=== PATIENT | male | born 1990 | race African-American/Black ===

== ENCOUNTER 2021-03-24 16:07 | Inpatient (IN) | payer OTHER ==
[2021-03-24] VITALS (17 sets, daily range): BP systolic 102–155; BP diastolic 58–91
[~2021-03-24] VITALS: Ht 182.9 cm; Wt 85.3 kg
--- NOTE | ~2021-03-24 | HC ---
[facility] [place] [address] [place] [address] CONSULTATION Name: DARIA TATE Room #: 247-P ADM IN M.R.#: [id number] Admission: 03/24/21 Attend Phys: Ramesh Gonzalez MD Discharge: Date of : 86 Report #: [id number] THIS REPORT FOR: cc: FAM - No family physician/PCP FAM - No family physician/PCP Feliberto Verde MD ~ DATE OF SERVICE: 03/26/2021 HISTORY OF PRESENT ILLNESS: This is a 30-year-old male patient who was evaluated by me to prognosticate this patient for hypoxic encephalopathy. I talked to the nurse looking after this patient and I reviewed the record. He was admitted after he apparently have some intellectual disability. He basically collapsed. When the EMS came, he apparently was pulseless. This patient is on cooling protocol. He has cardiomegaly. Presently, he is being seen by multiple consultants. He is on propofol, but that according to nurses is just because of hypothermia protocol rather than any agitation or any movement. REVIEW OF SYSTEMS: A 14-point review of system was attempted, but that is all I can get in this patient. PAST MEDICAL HISTORY: Positive for intellectual disability and it looks like the patient has a hypertrophic cardiomyopathy which was diagnosed here. FAMILY HISTORY: Unavailable if it runs in his family or not. SOCIAL HISTORY: All I can get is that he lives with his mother. PHYSICAL EXAMINATION: GENERAL: He has no response to verbal or painful stimuli and he is completely unresponsive. HEENT: His pupils are small and nonreactive. He has no reflexes. He is intubated and he is moderate built individual, does not have any dysmorphic features of eyes, ears and face. Plantars are mute. VITAL SIGNS: Blood pressure is 123/64, respirations 16, pulse is 62, temperature is hypothermic at 95. LABORATORY DATA: White count is 7.5 and lactic acid is 8.9 on admission. He did have a CT scan of the head in Emergency Room and that does not show any acute abnormality. IMPRESSION: Hypoxic encephalopathy. RECOMMENDATION: We will try to do some basic workup in this patient starting with an EEG once the patient is warmed up and decide about further testing depending upon the outcome of the EEG. We will continue to follow up this [address] [address] CONSULTATION Name: DARIA TATE Room #: 247-P [facility] IN M.R.#: [id number] Admission: 03/24/21 Attend Phys: Ramesh Gonzalez MD Discharge: Date of : 86 Report #: [id number] patient along with you. Thank you very much for this referral. By: 1949 0214 Feliberto Verde MD /nt
--- NOTE | ~2021-03-24 | EEG ---
[facility] [place] [address] ELECTROENCEPHALOGRAM Name: DARIA TATE Room #: 247-P ADM IN M.R.#: [id number] Admission: 03/24/21 Attend Phys: Ramesh Gonzalez MD Discharge: Date of : 86 Report #: [id number] THIS REPORT FOR: //name// DATE OF SERVICE: 03/28/2021 This patient is being evaluated for altered mental status. EEG was done by placing the electrode by standard 10-20 system of electrode placement. Both referential and sequential montages were used for recording. Background activity in this patient's EEG does go up to about 9 Hz. Photic stimulation is unremarkable. No active epileptiform activity was noticed. IMPRESSION: This patient's EEG demonstrates a fairly well-formed background activity. Sometimes, that can occur because of alpha coma. Therefore, clinical correlation is recommended. By: 1418 1427 Feliberto Verde MD /nt
[~2021-03-24 16:07] MED LIST: BACTRIM DS TAB1 EACH PO; IBUPROFEN 600600 M1 PO; NORCO 5-325 TA1 EACH PO; SILVADENE20 GM PO
--- NOTE | 2021-03-24 16:16 | NUR ---
20 MG ETOMIDATE GIVEN IVP @1613 100MG SUCC GIVEN IVP @1614 7.5 ETT TUBE PLACED @ 1615, 24 @ THE LIP
--- NOTE | 2021-03-24 17:01 | NUR ---
pt back from ct. during ct transport pt vomited multiple times but was able to be suctioned in ct successfully.
[2021-03-24 17:08] LABS: CALCIUM 9.4 mg/dL (8.5-10.1); CREATININE 1.7 mg/dL (0.7-1.3); POTASSIUM 3.9 mmol/L (3.5-5.1)
[2021-03-24 17:10] LABS: APTT 28.7 Seconds (24.5-32.8); INR 1.06; PROTIME 11.5 Seconds (10.5-12.1)
[2021-03-24 17:19] LABS: ALBUMIN 3.7 g/dL (3.4-5.0); TOTAL BILIRUBIN 0.3 mg/dL (0.2-1.0)
[2021-03-24 17:24] LABS: ABSOLUTE NEUTROPHILS 4.5 thou/uL (1.4-8.2); BASOPHILS 0.8 % (0.0-2.0); EOSINOPHILS 7.1 % (0.0-3.0); HEMATOCRIT 43.8 % (42.0-52.0); HEMOGLOBIN 13.8 gm/dL (14.0-18.0); LYMPHOCYTES 43.5 % (24.0-44.0); MCH 26.3 pg (26.0-34.0); MCHC 31.5 g/dL (28.0-37.0); MCV 83.4 fL (80.0-100.0); MONOCYTES 7.5 % (1.0-8.0); PLATELET COUNT 299 thou/uL (150-400); POLYS 41.1 % (36.0-66.0); RBC 5.25 mil/uL (4.50-6.00); RDW 16.2 % (10.5-14.5)
[2021-03-24 17:49] LABS: BE(vivo) -2.2 mmol/L (-2 to +3); HCO3 23.7 mmol/L (22.0-26.0); PCO2 44.6 mmHg (35.0-45.0); PO2 149.2 mmHg (80.0-100.0); pH 7.343 (7.360-7.450); sO2 98.8 % (92.0-98.0)
[2021-03-24 18:00] LABS: URINE BILIRUBIN NEGATIVE (Negative); URINE BLOOD 3+ (Negative); URINE CLARITY SL CLOUDY; URINE COLOR YELLOW; URINE GLUCOSE-RANDOM* 2+ (Negative); URINE KETONES NEGATIVE (Negative); URINE LEUKOCYTES-REFLEX NEGATIVE (Negative); URINE NITRITE-REFLEX NEGATIVE (Negative); URINE PROTEIN (DIPSTICK) 3+ (Negative); URINE SPECIFIC GRAVITY >= 1.030 (1.005-1.035)
[2021-03-24 18:04] LABS: BACTERIA-REFLEX 1-9 Few /HPF (None Seen); CASTS None Seen /LPF (None Seen); CRYSTALS None Seen /LPF (None Seen); SQUAMOUS 0-3 Few /LPF (0-3); URINE RBC 3-10 Few /HPF (NONE SEEN); URINE WBC-REFLEX 0-5 Rare /HPF (0-5)
[2021-03-24 18:07] LABS: AMP/METHAMP Negative (Negative); BARBITURATES Negative (Negative); BENZODIAZEPINES Negative (Negative); COCAINE Negative (Negative); METHADONE Negative (Negative); OPIATES Negative (Negative); PCP Negative (Negative)
[2021-03-24 21:44] LABS: D-DIMER 2.96 ug/mLFEU (0.19-0.50)
[2021-03-25] VITALS (96 sets, daily range): BP systolic 87–135; BP diastolic 42–83
[2021-03-25 01:39] LABS: ALBUMIN 3.1 g/dL (3.4-5.0); CALCIUM 8.9 mg/dL (8.5-10.1); CREATININE 1.1 mg/dL (0.7-1.3); MAGNESIUM 3.3 mg/dL (1.8-2.4); PHOSPHORUS 2.5 mg/dL (2.5-4.9); POTASSIUM 3.7 mmol/L (3.5-5.1); TOTAL BILIRUBIN 0.3 mg/dL (0.2-1.0); TOTAL PROTEIN 6.9 g/dL (6.4-8.2)
[2021-03-25 01:42] LABS: ABSOLUTE NEUTROPHILS 4.6 thou/uL (1.4-8.2); BASOPHILS 0.5 % (0.0-2.0); EOSINOPHILS 3.2 % (0.0-3.0); HEMATOCRIT 39.4 % (42.0-52.0); HEMOGLOBIN 12.8 gm/dL (14.0-18.0); LYMPHOCYTES 14.9 % (24.0-44.0); MCH 26.1 pg (26.0-34.0); MCHC 32.5 g/dL (28.0-37.0); MCV 80.5 fL (80.0-100.0); MONOCYTES 10.1 % (1.0-8.0); PLATELET COUNT 216 thou/uL (150-400); POLYS 71.3 % (36.0-66.0); RBC 4.89 mil/uL (4.50-6.00); RDW 15.3 % (10.5-14.5); WBC 6.4 thou/uL (4.0-11.0)
[2021-03-25 01:46] LABS: APTT 36.9 Seconds (24.5-32.8); INR 1.1; PROTIME 11.9 Seconds (10.5-12.1)
--- NOTE | 2021-03-25 04:37 | NUR ---
This RN admitted patient to room 247 at 2000. Patient started on hypothermia protocol at 2011. Family to bedside at 2100 for about 15 minutes. Mother, Jelly Quinn is patients legal guardian. Sister Anita to bedside as well. R IJ placed, CVP monitoring. Patient reached targeted temperature of 33.0 at 0415 this morning.
--- NOTE | 2021-03-25 04:40 | NUR ---
This RN called [facility] per protocol at 0430. Referral number is [id number].
--- NOTE | 2021-03-25 04:40 | NUR ---
This RN spoke to Anita, sister at 0130. Discussed patient status and plan of care. Questions answered.
[2021-03-25 04:50] LABS: BE(vivo) -4.5 mmol/L (-2 to +3); HCO3 18.5 mmol/L (22.0-26.0); PCO2 28.8 mmHg (35.0-45.0); PO2 158.4 mmHg (80.0-100.0); pH 7.425 (7.360-7.450); sO2 99.1 % (92.0-98.0)
[2021-03-25 06:37] LABS: ABSOLUTE NEUTROPHILS 3.2 thou/uL (1.4-8.2); BASOPHILS 0.5 % (0.0-2.0); EOSINOPHILS 3.1 % (0.0-3.0); HEMATOCRIT 27.4 % (42.0-52.0); LYMPHOCYTES 13.9 % (24.0-44.0); MCHC 31.7 g/dL (28.0-37.0); MCV 82.1 fL (80.0-100.0); MONOCYTES 7.3 % (1.0-8.0); POLYS 75.2 % (36.0-66.0); RBC 3.34 mil/uL (4.50-6.00); RDW 15.9 % (10.5-14.5); WBC 4.3 thou/uL (4.0-11.0)
[2021-03-25 06:38] LABS: HEMOGLOBIN 8.7 gm/dL (14.0-18.0); PLATELET COUNT 130 thou/uL (150-400)
[2021-03-25 06:50] LABS: APTT 37.6 Seconds (24.5-32.8); INR 1.15; PROTIME 12.5 Seconds (10.5-12.1)
[2021-03-25 07:32] LABS: CREATININE 0.5 mg/dL (0.7-1.3); PHOSPHORUS 1.6 mg/dL (2.5-4.9); POTASSIUM 3.6 mmol/L (3.5-5.1)
[2021-03-25 07:43] LABS: CALCIUM 6.2 mg/dL (8.5-10.1)
--- NOTE | 2021-03-25 08:39 | EKG ---
[address] [address] ELECTROCARDIOGRAM REPORT Name: MAISHA TATELINCOLN Magdalene Room #: 247-P ADM IN M.R.#: [id number] Admission: 03/24/21 Attend Phys: Ramesh Gonzalez MD Discharge: Date of : 86 Report #: [id number] [facility] ED Test Date: 2021-03-24 Test Time: 16:27:00 Pat Name: DARIA TATE Department: Room: [facility] Gender: M Second Class Welder: [id number] : 1990 Requested By: June Carranza Order Number: [id number] : Bryce Valderrama Measurements Intervals [place] Rate: 90 P: 40 RI: 156 QRS: 49 QRSD: 89 T: 193 QT: 394 QTc: 482 Interpretive Statements Sinus rhythm Lateral leads are also involved Compared to ECG 10/04/2010 21:20:58 Left ventricular hypertrophy no longer present ST (T wave) deviation no longer present Possible ischemia no longer present Electronically Signed On 03-25-2021 8:39:26 OPTICIAN APPRENTICE DISPENSING by Bryce Valderrama [email or web address] <ELECTRONICALLY SIGNED> By: Bryce Valderrama MD, [facility] 03/25/21 0839 1627 1627 Bryce Valderrama MD, [facility] /EPI
--- NOTE | 2021-03-25 08:40 | EKG ---
[address] [address] ELECTROCARDIOGRAM REPORT Name: MAISHA TATELINCOLN Magdalene Room #: 247- ADM IN M.R.#: [id number] Admission: 03/24/21 Attend Phys: Ramesh Gonzalez MD Discharge: Date of : 86 Report #: [id number] [facility] ED Test Date: 2021-03-24 Test Time: 17:31:22 Pat Name: DARIA TATE Department: Room: [facility] Gender: M Tax Expert: adriano : 1990 Requested By: June Carranza Order Number: [id number] MD: Bryce Valderrama Measurements Intervals [place] Rate: 89 P: 51 AL: 159 QRS: 66 QRSD: 84 T: 240 QT: 392 QTc: 477 Interpretive Statements Sinus rhythm Probable left atrial enlargement Repol abnrm Compared to ECG 03/24/2021 16:27:00 Early repolarization now present Myocardial infarct finding no longer present Electronically Signed On 03-25-2021 8:39:51 VALVE REPAIRER by Bryce Valderrama [email or web address] <ELECTRONICALLY SIGNED> By: Bryce Valderrama MD, [facility] 03/25/21 0839 173 30 Bryce Valderrama MD, FAC /EPI
--- NOTE | 2021-03-25 08:40 | EKG ---
[address] [place] [address] ELECTROCARDIOGRAM REPORT Name: DARIA TATE Room #: 247- ADM IN M.R.#: [id number] Admission: 03/24/21 Attend Phys: Ramesh Gonzalez MD Discharge: Date of : 86 Report #: [id number] [facility] Test Date: 2021-03-24 Test Time: 21:24:07 Pat Name: DARIA TATE Department: Room: [facility] Gender: M Equipment Manager: WILMAR : 1990 Requested By: Nito Hartman Order Number: [id number] MD: Bryce Valderrama Measurements Intervals [place] Rate: 81 P: 42 HI: 154 QRS: 64 QRSD: 83 T: 235 QT: 415 QTc: 482 Interpretive Statements Sinus rhythm Consider right atrial enlargement Repol abnrm, global ischemia, diffuse leads Compared to ECG 03/24/2021 17:31:22 No significant changes Electronically Signed On 03-25-2021 8:40:20 HAND MOLD MAKER by Bryce Valderrama [email or web address] <ELECTRONICALLY SIGNED> By: Bryce Valderrama MD, [facility] 03/25/21 0840 23 23 Bryce Valderrama MD, [facility] /EPI
--- NOTE | 2021-03-25 10:56 | NUR ---
RN TOOK OVER CARE FOR THIS PATIENT AT 0900. RN ASSESSED PT. PT IS ON COOLING BLANKET CURRENTLY. PT TEMPERATURE IS AT 34.1. RN PLACED ICE PACKS UNDER ARMS AND IN GROIN AREA. COOLING BLANKET IS SET TO 32.0 C. PT IS ON PROPOFOL AND VERSED GTT FOR SEDATION. PT RECEIVED AN ECHO TODAY. RN CALLED [facility] AND HAD THEM LEAVE A MESSAGE FOR DR DE SOUZA THAT PT HGB CAME BACK AT 13.6. RN WILL CONTINUE TO MONITOR AND FOLLOW PLAN OF CARE.
--- NOTE | 2021-03-25 11:58 | NUR ---
Discussed during los with the attending physician and during unit rounds with pulmonary MD. Rewarming has started already. Might need go to the laborer brush clearing Will cont following as needed.
[2021-03-25 13:20] LABS: ABSOLUTE NEUTROPHILS 4.2 thou/uL (1.4-8.2); BASOPHILS 0.6 % (0.0-2.0); EOSINOPHILS 3.8 % (0.0-3.0); HEMATOCRIT 41.4 % (42.0-52.0); HEMOGLOBIN 13.4 gm/dL (14.0-18.0); LYMPHOCYTES 10.6 % (24.0-44.0); MCH 26.2 pg (26.0-34.0); MCHC 32.5 g/dL (28.0-37.0); MCV 80.5 fL (80.0-100.0); MONOCYTES 5.5 % (1.0-8.0); PLATELET COUNT 189 thou/uL (150-400); POLYS 79.5 % (36.0-66.0); RBC 5.14 mil/uL (4.50-6.00); RDW 15.7 % (10.5-14.5); WBC 5.3 thou/uL (4.0-11.0)
[2021-03-25 13:39] LABS: APTT 38.2 Seconds (24.5-32.8); INR 1.16; PROTIME 12.6 Seconds (10.5-12.1)
[2021-03-25 13:44] LABS: CREATININE 0.9 mg/dL (0.7-1.3); MAGNESIUM 2.4 mg/dL (1.8-2.4); PHOSPHORUS 1.9 mg/dL (2.6-4.7); POTASSIUM 3.3 mmol/L (3.5-5.1)
[2021-03-25 13:46] LABS: CALCIUM 8.6 mg/dL (8.5-10.1)
--- NOTE | 2021-03-25 13:57 | NUR ---
FAMILY AT BEDSIDE THIS MORNING. RN ANSWERED QUESTIONS AND EXPLAINED TO PT MOTHER ABOUT POSSIBILITY OF GOING TO [facility] TODAY AND HAD CONSENT SIGNED. DR DE SOUZA CAME TO UNIT. DR DE SOUZA SPOKE WITH PT MOTHER ABOUT PT GOING TO [facility].
--- NOTE | 2021-03-25 14:16 | 2DMMODE ---
[facility] [place] [address] 2 D/M-MODE ECHOCARDIOGRAM Name: DARIA TATE Room #: 247-P ADM IN M.R.#: [id number] Admission: 03/24/21 Attend Phys: Ramesh Gonzalez MD Discharge: Date of : 86 Report #: [id number] THIS REPORT FOR: cc: SUJATHA - No family physician/PCP SUJATHA - No family physician/PCP Kiko Beaulieu MD [facility] ~ APPROVED REPORT Study performed: 03/25/2021 10:09:46 EXAM: Comprehensive 2D, Doppler, and color-flow Echocardiogram Patient Location: ICU Room #: [facility] Status: routine BSA: 2.14 HR: 64 bpm BP: 125/83 mmHg Rhythm: NSR Other Information Study Quality: Good Indications Abnormal ECG Cardiac arrest 2D Dimensions RVDd: 31.01 mm IVSd: 24.24 (7-11mm) LVOT Diam: 19.25 (18-24mm) LVDd: 35.15 mm PWd: 12.79 (7-11mm) Ascending Ao: 23.02 (22-36mm) LVDs: 26.29 (25-40mm) Left Atrium: 29.74 (27-40mm) Aortic Root: 24.84 mm IVC: 12.00 mm Volumes Left Atrial Volume (Systole) Single Plane 4CH: 57.99 mL Single Plane 2CH: 35.02 mL LA ESV Index: 26.00 mL/m2 Aortic Valve AoV Peak Bandar.: 1.38 m/s AO Peak Gr.: 7.64 mmHg LVOT Max P.51 mmHg LVOT Max V: 1.28 m/s [facility] [address] [address] 2 D/M-MODE ECHOCARDIOGRAM Name: MAISHA TATELINCOLN Magdalene Room #: 247-P [facility] IN [facility]#: [id number] Admission: 03/24/21 Attend Phys: Ramesh Gonzalez MD Discharge: Date of : 86 Report #: [id number] MYRTLE Vmax: 2.69 cm2 Mitral Valve E/A Ratio: 0.7 MV Decel. Time: 314.60 ms MV E Max Bandar.: 0.37 m/s MV A Bandar.: 0.51 m/s MV PHT: 91.23 ms IVRT: 207.61 ms Pulmonary Valve PV Peak Bandar.: 0.98 m/s PV Peak Gr.: 3.86 mmHg Pulmonary Vein P Vein S: 0.19 m/s P Vein A: 0.14 m/s P Vein D: 0.19 m/s P Vein A Dur.: 46.1 msec P Vein S/D Ratio: 1.00 Left Ventricle The left ventricle is normal size. There is normal LV segmental wall motion. Concentric left ventricular hypertrophy with severe septal hypertrophy consistent with hypertrophic cardiomyopathy The left ventricular systolic function is normal. The left ventricular ejection fraction is within the normal range. LVEF is 65-70%. Mild diastolic dysfunction Right Ventricle The right ventricle is normal size. The right ventricular systolic function is normal. Atria The left atrium size is normal. The right atrium size is normal. Aortic Valve The aortic valve is normal in structure. Mild aortic regurgitation. There is no aortic valvular stenosis. Mitral Valve The mitral valve is normal in structure. There is no mitral valve regurgitation noted. No evidence of mitral valve stenosis. Tricuspid Valve The tricuspid valve is normal in structure. There is no tricuspid valve regurgitation noted. [facility] [place] [address] 2 D/M-MODE ECHOCARDIOGRAM Name: DARIA TATE Room #: 247-P ADM IN M.R.#: [id number] Admission: 03/24/21 Attend Phys: Ramesh Gonzalez MD Discharge: Date of : 86 Report #: [id number] Pulmonic Valve The pulmonary valve is normal in structure. There is no pulmonic valvular regurgitation. Great Vessels The aortic root is normal in size. IVC is normal in size and collapses >50% with inspiration. Pericardium Moderate pericardial effusion. Critical Notification Critical Value: Yes Physician Notified <Conclusion> The left ventricular systolic function is normal. Concentric left ventricular hypertrophy with severe septal hypertrophy consistent with hypertrophic cardiomyopathy LVEF is 65-70%. The aortic valve is normal in structure. Mild aortic regurgitation, no stenosis The mitral valve is normal in structure. No mitral valve regurgitation Pulmonary artery pressure could not be reliably ascertained Moderate pericardial effusion. <ELECTRONICALLY SIGNED> By: Kiko Beaulieu MD, FACC 03/25/21 141 141 141 Kiko Beaulieu MD, FACC /INF
--- NOTE | 2021-03-25 15:44 | NUR ---
PT ARRVIED BACK TO ICU FROM VETERINARY NURSE AT 1516. PT TEMP WAS 31.7. RN PUT WARM BLANEKTS ON PT AND BACK ON THE COOLING/HEATING BLANKET TO GET PATIENT BACK TO TARGET TEMP OF [address] JURADO, THE 24 HOURS FOR MAINTAINING TARGET TEMP RESTARTS AT 1516 - WHEN PT CAME BACK TO UNIT. RN WILL CONTINUE TO MONITOR PT CLOSELY. FAMILY WAS NOTIFIED PT IS BACK IN HIS ROOM.
--- NOTE | 2021-03-25 15:49 | CATHLAB ---
[facility] [place] [address] INVASIVE PROCEDURE REPORT Name: DARIA TATE Room #: 247-P ADM IN M.R.#: [id number] Admission: 03/24/21 Attend Phys: Ramesh Gonzalez MD Discharge: Date of : 86 Report #: [id number] THIS REPORT FOR: cc: FAM - No family physician/PCP FAM - No family physician/PCP Jung Fernandes MD ~ APPROVED REPORT Study performed: 03/25/2021 14:13:35 Patient Details Patient Status: In-Patient Room #: The patient is a 30 year-old male Event Personnel Jung Fernandes Supervisor Detasseling Crew, Bebe Turner RTR Monitor, Nita Joiner RTR Scrub, Julita Del Rio RN riverine assault craft crewman Performed Art Access - R femoral artery* Left Heart Cath w/or w/o Coronaries [id number] [facility] Hemostasis with Manual pressure Indication Abnormal ECG, Cardiomyopathy, The patient presented with out of hospital arrest, witnessed by family members. EMS found V. fib requiring cardioversion x2, with ROSC. Found to have abnormal ECG and elevated troponin level. Procedure Narrative The Right Groin^ was infiltrated with 1% Lidocaine subcutaneous anesthesia. A PINNACLE 4FR Sheath #[id number] sheath was inserted into the RFA^. Coronary angiography was performed using coronary diagnostic catheters. The right coronary system was accessed and visualized with a JR4 catheter. The left coronary system was accessed and visualized with a JL4 catheter. The left ventricle was accessed and visualized with a ANGLED PIGTAIL catheter. Left ventriculogram was performed in 30 degree projection. Hemostasis was obtained with manual pressure following sheath removal without any complications. The patient tolerated the procedure well and there were no complications associated with the procedure. There was no hematoma. Intraoperative Conscious Sedation Sedation start time: 14:27 Case end Time: 14:51 [facility] [place] [address] INVASIVE PROCEDURE REPORT Name: DARIA TATE Room #: 247-P [facility] IN ..#: [id number] Admission: 03/24/21 Attend Phys: Ramesh Gonzalez MD Discharge: Date of : 86 Report #: [id number] No additional sedation was given during the procedure. Fluoro Time: 2.70 minutes Dose: DAP 6936.90 cGycm2 973 mGy Contrast Type and Amount: Omnipaque 93 ml Coronary Angiography The patient's coronary anatomy is right dominant. Diagnostic Cath Left Main The left main artery is a large-caliber vessel, patent with no flow-limiting lesions. LAD The LAD is a moderate-sized caliber vessel, traverses the anterior wall and wraps around the apex. This vessel is patent with no flow-limiting lesions. Diagonal 1 There is a small caliber vessel, with no flow-limiting lesions. Diagonal 2 There is a small caliber vessel, with no flow-limiting lesions. Circumflex Supplies 2 small OM vessels. Right Coronary The RCA is a moderate-sized caliber vessel, patent with no flow-limiting lesions. R PDA There appears to be compression during systole in the proximal PDA. RPLV This is a small to moderate-sized caliber vessel, patent with no flow-limiting lesions. Ramus This is a moderate-sized caliber vessel, divides into 2 branches. This vessel is patent with no flow-limiting lesions. Left Ventriculography The left ventricle is normal in size with Hyperdynamic contractility. The left ventricular ejection fraction is estimated to be 65-70%. Hemodynamics The aortic pressure is 101/68 mmHg with a mean of 84 mmHg. The left ventricular pressure is 112/6 mmHg with a mean of mmHg. The left ventricular end diastolic pressure is 16 mmHg. Conclusion 1. There are angiographically normal coronary arteries. 2. This is a right dominant system. 3. There is a ramus artery present, with no flow-limiting lesions. 4. The LV systolic function is hyperdynamic. [facility] [address] [place] [address] INVASIVE PROCEDURE REPORT Name: TATEDARIA Room #: 247-P [facility] IN M.R.#: [id number] Admission: 03/24/21 Attend Phys: Ramesh Gonzalez MD Discharge: Date of : 86 Report #: [id number] 5. There appears to be systolic compression of the proximal PDA segment, possible myocardial bridge. <ELECTRONICALLY SIGNED> By: Jung Fernandes MD 03/25/21 1548 1548 1548 Jung Fernandes MD /INF
[2021-03-25 15:53] LABS: CALCIUM 8.8 mg/dL (8.5-10.1); CREATININE 0.9 mg/dL (0.7-1.3); MAGNESIUM 2.7 mg/dL (1.8-2.4); POTASSIUM 4.2 mmol/L (3.5-5.1)
[2021-03-25 16:21] LABS: HEMATOCRIT 41.6 % (42.0-52.0); HEMOGLOBIN 13.2 gm/dL (14.0-18.0); MCH 25.8 pg (26.0-34.0); MCHC 31.7 g/dL (28.0-37.0); MCV 81.4 fL (80.0-100.0); RBC 5.11 mil/uL (4.50-6.00); RDW 15.8 % (10.5-14.5); WBC 4.1 thou/uL (4.0-11.0)
--- NOTE | 2021-03-25 17:25 | NUR ---
FAMILY PRESENT AT BEDSIDE. FAMILY IS WANTING DR TO CALL THEM WITH AN UPDATE. RN CALLED [facility] AND LEFT A MESSAGE WITH THE LOAN CONSULTANT TO ASK DR NEAL TO CALL THE FAMILY OF THE PT TO UPDATE THEM. WILL CONTINUE TO MONITOR AND FOLLOW PLAN OF CARE
[2021-03-25 18:33] LABS: ABSOLUTE NEUTROPHILS 4.4 thou/uL (1.4-8.2); BASOPHILS 0.9 % (0.0-2.0); EOSINOPHILS 5.2 % (0.0-3.0); HEMATOCRIT 41.8 % (42.0-52.0); LYMPHOCYTES 16.3 % (24.0-44.0); MCH 26.7 pg (26.0-34.0); MCHC 33.4 g/dL (28.0-37.0); MCV 79.9 fL (80.0-100.0); MONOCYTES 6.8 % (1.0-8.0); PLATELET COUNT 211 thou/uL (150-400); POLYS 70.8 % (36.0-66.0); RBC 5.23 mil/uL (4.50-6.00); RDW 15.8 % (10.5-14.5); WBC 6.2 thou/uL (4.0-11.0)
[2021-03-25 18:45] LABS: CALCIUM 8.8 mg/dL (8.5-10.1); MAGNESIUM 2.5 mg/dL (1.8-2.4); PHOSPHORUS 2.4 mg/dL (2.6-4.7); POTASSIUM 4.2 mmol/L (3.5-5.1)
[2021-03-25 18:49] LABS: APTT 38.3 Seconds (24.5-32.8); INR 1.2
[2021-03-26] VITALS (93 sets, daily range): BP systolic 85–140; BP diastolic 35–82
[2021-03-26 03:46] LABS: HEMATOCRIT 44.9 % (42.0-52.0); HEMOGLOBIN 14.4 gm/dL (14.0-18.0); MCH 26.4 pg (26.0-34.0); MCHC 32.2 g/dL (28.0-37.0); MCV 82.1 fL (80.0-100.0); RBC 5.47 mil/uL (4.50-6.00); RDW 15.9 % (10.5-14.5); WBC 7.5 thou/uL (4.0-11.0)
[2021-03-26 04:03] LABS: CALCIUM 8.9 mg/dL (8.5-10.1); CREATININE 0.8 mg/dL (0.7-1.3); POTASSIUM 4.4 mmol/L (3.5-5.1)
--- NOTE | 2021-03-26 15:18 | NUR ---
Chart review. vent 30%, peep 5. nutritional support. no anticipated discharge over the weekend. Will cont following as needed.
--- NOTE | 2021-03-26 19:59 | NUR ---
DR ROSALES AT BEDSIDE AT 1937 AND DISCUSSED WITH THIS RN NEURO PLAN. PLAN FOR REPEAT CT HEAD ON 03/29.
[2021-03-27] VITALS (69 sets, daily range): BP systolic 105–158; BP diastolic 51–90
[2021-03-27 03:47] LABS: CALCIUM 8.9 mg/dL (8.5-10.1); CREATININE 1.1 mg/dL (0.7-1.3); POTASSIUM 4.4 mmol/L (3.5-5.1)
[2021-03-27 04:01] LABS: HEMOGLOBIN 12.9 gm/dL (14.0-18.0); MCH 26.4 pg (26.0-34.0); MCHC 32.1 g/dL (28.0-37.0); MCV 82.1 fL (80.0-100.0); RBC 4.87 mil/uL (4.50-6.00); RDW 16.5 % (10.5-14.5); WBC 6.1 thou/uL (4.0-11.0)
[2021-03-27 10:52] LABS: CHOLESTEROL 147 mg/dL (<200); HDL CHOLESTEROL 30 mg/dL (>40); LDL CHOLESTEROL 89 mg/dL (<100); TC:HDL 4.9 Ratio (Not establshd); TRIGLYCERIDE 143 mg/dL (<150); VLDL 29 mg/dL (<40)
--- NOTE | 2021-03-27 20:16 | NUR ---
COOLING BLANKET REINITIATED AT START OF SHIFT R/T TEMP RISING. TITRATED SEDATION DOWN TO ATTEMPT MORE COMPLETE NEURO ASSESSMENT. AT BEST, PT LIGHTLY SQUEEZES HANDS ON COMMAND AND MOVES FEET, ATTEMPTS TO OPEN EYES AND GRIMACES WITH ORAL CARE AND INLINE SUCTION STIMULATION. DOPAMINE TITRATED DOWN TO EFFECT. WARM BLANKETS APPLIED AT EOS R/T TEMP DECREASING, PLAN TO KEEP 37C FOR 48HRS TOTAL. TF STARTED, PT TOLERATING. FAMILY UPDATED THROUGHOUT DAY.
[2021-03-28] VITALS (63 sets, daily range): BP systolic 106–162; BP diastolic 39–93
--- NOTE | 2021-03-28 06:00 | NUR ---
REMAINS INTUBATED AND SEDATED. PT WILL UTILIZATION ENGINEER WEAKLY TO COMMAND + COUGH AND GAG 950 CC UO THIS SHIFT. LUNGS COARSE RHONCHI BILAT. HYPOTHERMIA PROTOCAL COMPLETE. WILL CONT TO MONITOR
[2021-03-28 06:32] LABS: EOSINOPHILS 6.8 % (0.0-3.0); HEMATOCRIT 39.1 % (42.0-52.0); HEMOGLOBIN 12.2 gm/dL (14.0-18.0); LYMPHOCYTES 17.6 % (24.0-44.0); MCH 25.7 pg (26.0-34.0); MCHC 31.3 g/dL (28.0-37.0); MCV 82.1 fL (80.0-100.0); MONOCYTES 10.4 % (1.0-8.0); PLATELET COUNT 199 thou/uL (150-400); POLYS 64.2 % (36.0-66.0); RBC 4.76 mil/uL (4.50-6.00); RDW 16.7 % (10.5-14.5); WBC 6.2 thou/uL (4.0-11.0)
[2021-03-28 06:45] LABS: ALBUMIN 2.6 g/dL (3.4-5.0); CALCIUM 8.6 mg/dL (8.5-10.1); MAGNESIUM 1.7 mg/dL (1.8-2.4); PHOSPHORUS 3.5 mg/dL (2.6-4.7); POTASSIUM 3.6 mmol/L (3.5-5.1); TOTAL BILIRUBIN 0.2 mg/dL (0.2-1.0); TOTAL PROTEIN 6.3 g/dL (6.4-8.2)
[2021-03-28 07:07] LABS: GLYCOHEMOGLOBIN (HGB A1C) 5.6 % (4.8-5.6)
[2021-03-28 12:41] LABS: BE(vivo) 0.5 mmol/L (-2 to +3); HCO3 23.8 mmol/L (22.0-26.0); PCO2 34.2 mmHg (35.0-45.0); PO2 115.9 mmHg (80.0-100.0); pH 7.461 (7.360-7.450); sO2 98.5 % (92.0-98.0)
--- NOTE | 2021-03-28 12:57 | NUR ---
PATIENT TRIAL ON CPAP TODAY- 08/08 30% HIS RSBI AT CLOSE OF TRIAL WAS 31 NIF -35. HIS ABG WAS 7.46/34.2/115.9/23.8 98%. RELAYED INFORMATION TO DR LEES AND HE DECIDED TO WAIT TO EXTUBATE WHEN PATIENT MENTATION HAS CLEARED. ALL SEDATION IS OFF AT THE MOMENT AND PRECEDEX IS BEING ADDED. EXTUBATION EXPECTED TOMORROW IF NO CHANGE IN STATUS OCCURS.
[2021-03-29] VITALS (45 sets, daily range): BP systolic 116–157; BP diastolic 62–98
[2021-03-29 04:43] LABS: ABSOLUTE NEUTROPHILS 5.3 thou/uL (1.4-8.2); BASOPHILS 0.5 % (0.0-2.0); EOSINOPHILS 4.2 % (0.0-3.0); HEMATOCRIT 38.4 % (42.0-52.0); HEMOGLOBIN 12.6 gm/dL (14.0-18.0); LYMPHOCYTES 14.7 % (24.0-44.0); MCH 26.1 pg (26.0-34.0); MCHC 32.8 g/dL (28.0-37.0); MCV 79.8 fL (80.0-100.0); PLATELET COUNT 208 thou/uL (150-400); POLYS 67.6 % (36.0-66.0); RBC 4.81 mil/uL (4.50-6.00); RDW 16.1 % (10.5-14.5); WBC 7.8 thou/uL (4.0-11.0)
--- NOTE | 2021-03-29 06:00 | NUR ---
REMAINS INTUBATED. MOVING PURPOSEFULLY ATTEMPTED TO SIT UP IN BED AND PULL AT TUBES. SINUS RHYTHM. VSS TEMP 97.3 THIS HOUR. WILL ATTEMPT CPAP THIS AM. AND HPOEFULLY EXTUBATE. 2 LITERS UO THIS SHIFT. GREATLY PROGRESSIBNG TOWARD GOALS. BATHED.
[2021-03-29 06:16] LABS: CALCIUM 9.3 mg/dL (8.5-10.1); CREATININE 1.1 mg/dL (0.7-1.3); MAGNESIUM 2.1 mg/dL (1.8-2.4); PHOSPHORUS 3.7 mg/dL (2.6-4.7); POTASSIUM 4.4 mmol/L (3.5-5.1)
[2021-03-29 09:38] LABS: BE(vivo) 2.4 mmol/L (-2 to +3); HCO3 26.4 mmol/L (22.0-26.0); PCO2 38.7 mmHg (35.0-45.0); PO2 111.5 mmHg (80.0-100.0); pH 7.452 (7.360-7.450); sO2 98.3 % (92.0-98.0)
--- NOTE | 2021-03-29 22:26 | NUR ---
pT'S MOTHER AND SISTER UPDATED ON PATIENT'S STATUS. PT REQUESTED TO NOT HAVE A BATH PERFORMED TONIGHT BUT DURING THE DAY TOMORROW WHEN HIS MOTHER IS HERE TO HELP HIM.
[2021-03-30] VITALS (22 sets, daily range): BP systolic 125–153; BP diastolic 63–88
[2021-03-30 11:36] LABS: CALCIUM 8.7 mg/dL (8.5-10.1); POTASSIUM 3.3 mmol/L (3.5-5.1)
[2021-03-30 11:43] LABS: INR 1.05; PROTIME 11.4 Seconds (10.5-12.1)
--- NOTE | 2021-03-30 14:20 | NUR ---
He self extubated yesterday. He is up in the recliner chair on room air. His mom is here at bedside. Will need ICD. Cardiac following. Speech eval for diet. Will cont following as needed.
--- NOTE | 2021-03-30 17:15 | NUR ---
PT PROGRESSING TOWARD GOALS. PT WORKED WITH SPEECH THERAPY, PT, AND OT TODAY. ST CLEARED PATIENT TO EAT WITH A MECHANICAL SOFT DIET. PT TOLERATED A FEW BITES AT LUNCH. OT GOT PATIENT UP TO CHAIR AND PT TOOK A FEW STEPS WITH PATIENT. PATIENT GOT UP TO BEDSIDE COMMODE AND HAD BM X3 THIS SHIFT. PT'S MOTHER GAVE HIM A BATH AND HELPED HIM BRUSH HIS TEETH. MOTHER WAS @ BEDSIDE ALL DAY AND HELD UP HER PHONE WHILE PT FACETIMED HIS FRIENDS/FAMILY. SATS >96% ON RA, BP STABLE, AND HR IN THE 80S. PT REMAINS AFEBRILE. RECTAL TEMP PROBE FELL OUT DURING FIRST BM AND THIS RN DID NOT REPLACE IT. CVP WAS DC'D PRIOR TO TRANSFER TO CCU ROOM 218. PT WAS TRANSPORTED VIA WHEELCHAIR BY PITCH FILLER ARSENIO AND PT'S MOTHER AROUND 1615. WILL CONTINUE TO FOLLOW POC.
--- NOTE | 2021-03-30 17:59 | NUR ---
Pt arrived to unit at 1615, transferred from ICU. Pt is A&0x4, VS stable and afebrile. No complaints of pain. Pt's voice is hoarse. Pt is resting in bed. No current concerns. Continue to monitor.
[2021-03-31 03:50] VITALS: BP 157/86
[2021-03-31 05:32] LABS: HEMATOCRIT 37.1 % (42.0-52.0); HEMOGLOBIN 12.1 gm/dL (14.0-18.0); MCH 25.8 pg (26.0-34.0); MCHC 32.7 g/dL (28.0-37.0); MCV 78.9 fL (80.0-100.0); RBC 4.71 mil/uL (4.50-6.00); RDW 15.4 % (10.5-14.5); WBC 5.9 thou/uL (4.0-11.0)
[2021-03-31 05:44] LABS: CALCIUM 8.8 mg/dL (8.5-10.1); CREATININE 1.1 mg/dL (0.7-1.3); POTASSIUM 3.4 mmol/L (3.5-5.1)
--- NOTE | 2021-03-31 06:27 | NUR ---
SLEEPING AT PRESENT TIME. UP TO COMODE X3, HAD ONE SMALL STOOL AND PASSED GAS THE OTHER 2 TIMES. NEEDS FREQUENT REASSURANCE. DENIES COMPLAINTS OF PAIN OR SHORTNESS OF AIR. TALKS ABOUT MUSIC FREQUENTLY. CONTINUE TO ASSES.
[2021-03-31 09:24] VITALS: BP 161/91
[2021-03-31 12:10] VITALS: BP 137/72
[2021-03-31 16:12] VITALS: BP 140/72
--- NOTE | 2021-03-31 18:02 | NUR ---
ASSESSMENT S CHARTED - MEDS PER MAR - LARRY SMALL AMOUNTS OF DIET AND FLUIDS. NO CO'S OF PAIN OR NAUSEA. AMBULATED IN THE HALLS WITH PHY THERAPY - SHOWERED WITH OCC THERAPY. COTTRELL CATH D/C AT APPROX 1200 PT HAS NOT VOIDED SINCE REMOVAL - WILL CONTINUE TO MONITOR. PT TO HAVE AICD PLACED TOMORROW - PERMIT SIGNED. MOTHER AT THE BEDSIDE FOR MOST OF THE DAY. NO CO'S AT THE PRESENT TIME.
[2021-03-31 19:39] VITALS: BP 127/70
[2021-04-01 03:48] VITALS: BP 120/56
--- NOTE | 2021-04-01 04:31 | NUR ---
Assumed pt care at 1900. Pt is alert and oriented. No sign of distress noted in pt. Pt is ambulatory. Vital signs stable. Assessment completed and documented. Scheduled meds administered to pt. No acute event during the night. Pt is NPO after midnight for a scheduled ICD placement. Continue to monitor, no further needs at this time.
[2021-04-01 06:17] LABS: ABSOLUTE NEUTROPHILS 2.5 thou/uL (1.4-8.2); BASOPHILS 0.9 % (0.0-2.0); EOSINOPHILS 8.2 % (0.0-3.0); HEMOGLOBIN 12.3 gm/dL (14.0-18.0); LYMPHOCYTES 33.7 % (24.0-44.0); MCH 26.3 pg (26.0-34.0); MCHC 33.2 g/dL (28.0-37.0); MCV 79.1 fL (80.0-100.0); MONOCYTES 12.8 % (1.0-8.0); PLATELET COUNT 226 thou/uL (150-400); POLYS 44.4 % (36.0-66.0); RBC 4.68 mil/uL (4.50-6.00); RDW 15.4 % (10.5-14.5); WBC 5.6 thou/uL (4.0-11.0)
[2021-04-01 06:30] LABS: APTT 33.9 Seconds (24.5-32.8); INR 1.14; PROTIME 12.4 Seconds (10.5-12.1)
[2021-04-01 06:47] LABS: CREATININE 1.1 mg/dL (0.7-1.3); POTASSIUM 3.6 mmol/L (3.5-5.1); TOTAL BILIRUBIN 0.4 mg/dL (0.2-1.0); TOTAL PROTEIN 6.8 g/dL (6.4-8.2)
[2021-04-01 08:00] VITALS: BP 140/75
[2021-04-01 12:00] VITALS: BP 147/71
[2021-04-01 12:46] VITALS: BP 108/82
--- NOTE | 2021-04-01 16:39 | NUR ---
CHART REVIEWED AND DISCUSSED WITH CARE TEAM. PT LIVES AT HOME WITH HIS MOTHER AND HAS CHRONIC DISABILITY. HE IS A MAX ASSIST. PTS MOTHER PROVIDED ALL CARES. NO CM NEEDS ONCE MEDICALLY STABLE TO DC AT THIS TIME. CM WILL CONTINUE TO FOLLOW FOR DC PLANNING.
--- NOTE | 2021-04-01 16:57 | NUR ---
ASSESSMENT CHARTED - MEDS PER MAR - LARRY DIET AND FLUIDS. PT HAD AICD PLACED THIS SHIFT. SITE IS C/D/I. NO CO'S OF PAIN OR NAUSEA. PT HAS BEEN ON BEDREST - IMMOBILIZER IN PLACE. MOTHER AT THE BEDSIDE. NO CO'S AT THE PRESENT TIME.
[2021-04-01 17:46] VITALS: BP 124/65
[2021-04-01 20:11] VITALS: BP 120/79
[2021-04-02 05:47] VITALS: BP 150/74
--- NOTE | 2021-04-02 07:36 | NUR ---
ASSUMED PT CARE AT 1900, ALERT AND ORIENTED, SLOW RESPONSE, DENIES PAIN, L.CHEST AICD PLACEMENT AREA CDI,VSS, SR ON TELE, DENIES SOA, R. GROIN AREA CDI, NO DISTRESS NOTED ON THIS PT, REPORT GIVEN TO DAY RN, PROGREDDING WELL TOWARDS DISCHARGE
[2021-04-02 08:15] VITALS: BP 120/75
[2021-04-02] MEDS ORDERED: METOPROLOL SUCC50 MG PO (10:46)
[2021-04-02 13:42] VITALS: BP 120/75
--- NOTE | 2021-04-05 08:23 | P ---
[facility] [place] [address] PROCEDURE REPORT Name: DARIA TATE Room #: 218-P [facility] IN M.R.#: [id number] Admission: 03/24/21 Attend Phys: Ramesh Gonzalez MD Discharge: 04/02/21 Date of : 86 Report #: [id number] THIS REPORT FOR: cc: FAM - No family physician/PCP FAM - No family physician/PCP Chapin Melvin MD ~ DATE OF SERVICE: 04/01/2021 ICD IMPLANTATION PREOPERATIVE DIAGNOSES: 1. Cardiac arrest due to ventricular fibrillation. 2. Hypertrophic cardiomyopathy. HISTORY: The patient is a 30-year-old with intellectual disability, who had a witnessed cardiac arrest secondary to ventricular fibrillation, successfully resuscitated in the field. He underwent hypothermic protocol. He was found to have evidence of a newly diagnosed hypertrophic cardiomyopathy. He is here for ICD implantation for secondary prevention of sudden cardiac . DESCRIPTION OF PROCEDURE: The patient and his mother underwent informed consent. We discussed the details of the procedure including the risks, which included but not limited to bleeding, infection, vascular damage, cardiac perforation, pneumothorax. The patient understood these risks and willing to proceed. The patient was brought to the EP laboratory in a fasting and sedated state, prepped and draped in a standard fashion. The patient received IV antibiotics prior to initiation of the procedure and underwent a venogram showing patency of left axillary vein. Next, I injected lidocaine at the incision site. Incision was made, pocket created over the prepectoral fascia. Access was obtained twice to left axillary vein and sheaths positioned using the modified Seldinger technique. Leads were positioned in the right ventricular apex and right atrial appendage, both with adequate pacing and sensing thresholds. Leads were sutured to the prepectoral fascia. Device connected, tug test confirmed, pocket irrigated with vancomycin and pocket was closed in 2 layers with surgical glue placed to the outer skin layer. There were no procedure related complications. The implanted device was a WaveMAX, model number [id number], serial number [id number]. The atrial lead was a 5076, 52 cm, serial number [id number]. The ventricular lead was a 6947, 62 cm, serial number [id number]. The atrial lead demonstrated a P-wave of 1.9 millivolts, pacing impedance of 797 ohms, pacing threshold 0.7 volts at 0.5 milliseconds. RV lead demonstrated R waves of 13 millivolts, pacing impedance of 491 ohms, pacing threshold 0.3 volts at 0.5 milliseconds. The device was programmed to DDD 50-130 mode. The monitor zone was set at 180-200 beats per minute. The VT 1 zone was set at 200-240 beats per minute with 3 rounds of burst followed by 3 rounds of ramp followed by [facility] [address] [place] [address] PROCEDURE REPORT Name: CHELITA TATEMIRA Magdalene Room #: 218-P [facility] IN M.R.#: [id number] Admission: 03/24/21 Attend Phys: Ramesh Gonzalez MD Discharge: 04/02/21 Date of : 86 Report #: [id number] output shocks. VF zone was set at greater than 240 beats per minute with ATP while charging followed by max output shocks. CONCLUSION: 1. Successful ICD implantation. 2. Satisfactory atrial and ventricular pacing and sensing thresholds. <ELECTRONICALLY SIGNED> By: Chapin Melvin MD 04/05/21 0823 [id number] Chapin Melvin MD /nt
== END 2021-04-02 14:39 | disposition home or self-care (01) | DRG 224 ==
LOC: ER 16:07 → ICU 20:16 → 2N 03-30 16:52
PROVIDERS: Emergency Medicine; Hospitalist; Internal Medicine; Internal Medicine Cardiovascular Disease; Internal Medicine Pulmonary Disease; Nurse Practitioner; Pediatrics; ADMIT Internal Medicine; ATTEND Internal Medicine
PROC: 5A2204Z Restoration of Cardiac Rhythm, Single (ICD-10-PCS; 2021-03-24)
PROC: 5A12012 Performance of Cardiac Output, Single, Manual (ICD-10-PCS; 2021-03-24)
PROC: B548ZZA Ultrasonography of Superior Vena Cava, Guidance (ICD-10-PCS; principal; 2021-03-25)
PROC: B2151ZZ Fluoroscopy of Left Heart using Low Osmolar Contrast (ICD-10-PCS; principal; 2021-03-25)
PROC: B2111ZZ Fluoroscopy of Multiple Coronary Arteries using Low Osmolar Contrast (ICD-10-PCS; principal; 2021-03-25)
PROC: 02H633Z Insertion of Infusion Device into Right Atrium, Percutaneous Approach (ICD-10-PCS; principal; 2021-03-25)
PROC: 4A023N7 Measurement of Cardiac Sampling and Pressure, Left Heart, Percutaneous Approach (ICD-10-PCS; principal; 2021-03-25)
PROC: 0BH17EZ Insertion of Endotracheal Airway into Trachea, Via Natural or Artificial Opening (ICD-10-PCS; 2021-03-29)
PROC: 5A1955Z Respiratory Ventilation, Greater than 96 Consecutive Hours (ICD-10-PCS; 2021-03-29)
PROC: 02H63KZ Insertion of Defibrillator Lead into Right Atrium, Percutaneous Approach (ICD-10-PCS; 2021-04-01)
PROC: 02HK3KZ Insertion of Defibrillator Lead into Right Ventricle, Percutaneous Approach (ICD-10-PCS; 2021-04-01)
PROC: 0JH608Z Insertion of Defibrillator Generator into Chest Subcutaneous Tissue and Fascia, Open Approach (ICD-10-PCS; 2021-04-01)
PROC: 4B02XTZ Measurement of Cardiac Defibrillator, External Approach (ICD-10-PCS; 2021-04-02)
DX: I49.01 Ventricular fibrillation (principal); J96.01 Acute respiratory failure with hypoxia; J69.0 Pneumonitis due to inhalation of food and vomit; N17.9 Acute kidney failure, unspecified; G93.1 Anoxic brain damage, not elsewhere classified; E87.2 Acidosis; I42.2 Other hypertrophic cardiomyopathy; I46.9 Cardiac arrest, cause unspecified; R77.8 Other specified abnormalities of plasma proteins; Z20.822 Contact with and (suspected) exposure to COVID-19; F79 Unspecified intellectual disabilities; R74.01 Elevation of levels of liver transaminase levels; I51.7 Cardiomegaly; E16.2 Hypoglycemia, unspecified; E87.6 Hypokalemia; Z88.0 Allergy status to penicillin

== ENCOUNTER → 2021-04-08 | Outpatient (CLI) | payer OTHER ==
[~2021-04-08] MED LIST changes: +METOPROLOL SUCC50 MG PO
== END ==
LOC: SJCVC 14:05
PROVIDERS: ATTEND Internal Medicine Cardiovascular Disease
DX: R94.31 Abnormal electrocardiogram [ECG] [EKG] (principal); I51.7 Cardiomegaly; I46.9 Cardiac arrest, cause unspecified; I49.01 Ventricular fibrillation; I42.2 Other hypertrophic cardiomyopathy; F84.0 Autistic disorder; F79 Unspecified intellectual disabilities; Z79.899 Other long term (current) drug therapy; Z88.0 Allergy status to penicillin